=== PATIENT | female | born 1995 | race Caucasian/White ===

== ENCOUNTER 2017-10-25 22:58 | Emergency (ER) | payer OTHER ==
[~2017-10-25] VITALS: Ht 160 cm; Wt 75.3 kg
[2017-10-25 23:17] VITALS: Ht 160 cm; Wt 75.3 kg
[2017-10-26 00:55] VITALS: BP 131/71
== END 2017-10-26 00:55 | disposition home or self-care (01) ==
LOC: ED 22:58
DX: S39.012A Strain of muscle, fascia and tendon of lower back, initial encounter (principal); Z91.018 Allergy to other foods; X58.XXXA Exposure to other specified factors, initial encounter; Y93.89 Activity, other specified; Y92.89 Other specified places as the place of occurrence of the external cause; Y99.8 Other external cause status
CPT/HCPCS: J1885

== ENCOUNTER 2019-11-28 23:19 | Emergency (ER) | payer MEDICAID ==
[~2019-11-28] VITALS: Ht 160 cm; Wt 90.7 kg
[2019-11-28 23:25] VITALS: BP 135/78; Ht 160 cm; Wt 90.7 kg
== END 2019-11-29 00:37 | disposition left against medical advice (07) ==
LOC: ED 23:19
DX: Z53.21 Procedure and treatment not carried out due to patient leaving prior to being seen by health care provider (principal)